=== PATIENT | male | born 1965 | race Caucasian/White ===

== ENCOUNTER → 2019-11-12 | Outpatient (CLI) | payer BC ==
--- NOTE | 2019-11-12 15:38 | Diagnostic Imaging Report ---
EXAMINATION: CHEST 2 VIEWS INDICATION: Hypertension COMPARISON: None FINDINGS: LINES/TUBES:None LUNGS:The lungs are well-inflated. No focal consolidation or pulmonary edema. PLEURA:No pleural effusion or pneumothorax. MEDIASTINUM:The cardiomediastinal silhouette appears normal in size and shape. BONES/SOFT TISSUES:No acute osseous injury. ABDOMEN:No free air under the diaphragm. IMPRESSION: No focal pneumonia or pulmonary edema. Signed by: Luis Eduardo Jenkins MD on 11/12/2019 3:35 PM
--- NOTE | 2019-11-12 15:39 | Diagnostic Imaging Report ---
EXAMINATION: SP LUMBAR, COMPLETE MIN 4VW INDICATION: Back pain COMPARISON: None FINDINGS: No acute fracture or dislocation. Vertebral body heights are maintained. Alignment is anatomic. Mild multilevel degenerative changes with disc space narrowing and osteophyte formation. Phleboliths in the pelvis. IMPRESSION: No acute osseous injury. Mild multilevel degenerative changes. Signed by: Luis Eduardo Jenkins MD on 11/12/2019 3:36 PM
== END ==
LOC: RAD 13:13
PROVIDERS: ATTEND Internal Medicine
DX: M54.6 Pain in thoracic spine (principal); M54.5 Low back pain; I10 Essential (primary) hypertension
CPT/HCPCS: 71046; 72110